=== PATIENT | male | born 1995 | race African-American/Black ===

== ENCOUNTER 2022-05-20 17:33 | Emergency (ER) | payer OTHER ==
[2022-05-20 17:46] VITALS: BP 133/78; PULSE 77; RESP 16; TEMP 98.8; BMI 20.4
[2022-05-20] MEDS ORDERED: ACETAMINOPHEN 325 MG TABLET (FP) PO ONE (18:10)
[2022-05-20] MEDS ORDERED: KETOROLAC TROMETHAMINE 30 MG/1 ML VIAL IM ONE (18:20)
[2022-05-20] MEDS ORDERED: ACETAMINOPHEN 500 MG TABLET (FP) ONE (18:40)
[2022-05-20] MEDS ORDERED: KETOROLAC TROMETHAMINE 30 MG/1 ML VIAL ONE (18:40)
== END 2022-05-20 18:50 | disposition home or self-care (01) ==
LOC: FER 17:33
PROC: 3E0233Z Introduction of Anti-inflammatory into Muscle, Percutaneous Approach (ICD-10-PCS; principal; 2022-05-20)
DX: M79.604 Pain in right leg (principal)
CPT/HCPCS: 93971-TC; 99284-25